=== PATIENT | female | born 1935 | race Caucasian/White ===

== ENCOUNTER 2019-07-30 07:50 | Inpatient (IN) | payer OTHER ==
[~2019-07-30] VITALS: Ht 160 cm; Wt 98.3 kg
[2019-07-30] VITALS (19 sets, daily range): BP systolic 86–139; BP diastolic 40–94
--- NOTE | ~2019-07-30 | D ---
[facility] [place] [address] DISCHARGE SUMMARY Name: ANGELICA LEE Room #: 242-P [facility] IN .R.#: [id number] Admission: 07/30/19 Attend Phys: Chu Palacios MD Discharge: 08/04/19 Date of : 37 Report #: [id number] THIS REPORT FOR: //name// CC: DEVAN physician/PCP NO PCP Chu Palacios DATE OF SERVICE: 08/04/2019 SUMMARY OF HISTORY AND PHYSICAL: Over the summer the patient had "seemed to have given up," according to multiple family members after she had been informed by her police magistrate that surgical repair of either her ascending/arch/descending aortic aneurysm or her abdominal aortic aneurysm would be prohibitively risky in general, but especially given her severe oxygen dependent COPD, and that she was not a surgical candidate. Also, according to multiple family members, she had become less and less able to tolerate exertion and was not leaving her house. She developed a diarrheal illness several days prior to admission and had fecal incontinence. She had taken to staying on the couch almost all the time and was not able to walk any farther then to the bathroom and back with assistance. She had her to assist her. Immediately prior to coming to the hospital, he was unable to get her off of the couch for longer than 4 hours. He called his son to come over and help and together the two of them were unable to get her up from the couch. They eventually called the paramedics who brought her to the hospital. In the Emergency Room, she complained of back pain and was evaluated further. Ultimately, her back pain was felt to be a worsening of her known osteoporosis and compression fractures and chronic back pain. It was felt that her back pain was not from either the thoracic or the aortic aneurysm. She also reported difficulty breathing to the Emergency Room staff. She was admitted for assistance with her back pain and breathing problems. SUMMARY OF HOSPITAL COURSE: Soon after arriving on the floor, she became quite somnolent. She was found to have CO2 retention narcosis. She was seen in urgent Pulmonary Medicine consultation and intubated and placed on a ventilator in the intensive care unit. She slowly improved and steps were taken towards weaning. However, in the hand clerical verifier hours of 08/04/2019, she developed a complex change on her EKG rhythm strips. She shifted from a normal sinus rhythm to an idioventricular rhythm with a change in her access and dramatic widening of her QRS complex. She was found to have progressively lower blood pressure and a code blue was called. She was found to have pulseless electrical activity and [facility] [address] [place] [address] DISCHARGE SUMMARY Name: ANGELICA LEE Room #: 242-P [facility]#: [id number] Admission: 07/30/19 Attend Phys: Chu Palacios MD Discharge: 08/04/19 Date of : 37 Report #: [id number] resuscitation efforts were carried out with the standard protocol. The resuscitation efforts were not successful, and she was pronounced by the Emergency Room physician who responded to the code. CAUSE OF : 1. Cardiac arrest. 2. Acute myocardial infarction with change in EKG complexes. 3. Known coronary artery disease. 4. Known aneurysmal dilatation of the entire thoracic aorta. 5. Rezre-xc-rkoqujs respiratory failure. 6. Severe oxygen-dependent chronic obstructive pulmonary disease. 7. Other medical problems as listed in the history and physical. By: 1857 2334 Chu Palacios MD /nt
[~2019-07-30 07:50] MED LIST: APAP500 PO; BYSTOLIC 5 MG5 M1 PO; COL-RITE100 MG PO; FUROSEMIDE 40 M40 M1 PO; HYDROCODONE-AP1 EAC6 PO; KLOR-CON 1010 MEQ PO; SENOKOT-S1 TA1 PO
[2019-07-30] MEDS ORDERED: DIAZEPAM 10 MG10 M2 PO (08:48)
[2019-07-30 08:51] LABS: URINE BILIRUBIN NEGATIVE (Negative); URINE BLOOD NEGATIVE (Negative); URINE CLARITY CLEAR; URINE COLOR YELLOW; URINE GLUCOSE-RANDOM* NEGATIVE (Negative); URINE KETONES NEGATIVE (Negative); URINE LEUKOCYTES 1+ (Negative); URINE NITRITE NEGATIVE (Negative); URINE PROTEIN (DIPSTICK) NEGATIVE (Negative); URINE UROBILINOGEN 0.2 E.U./dl (0.2-1.0)
[2019-07-30 09:08] LABS: CASTS None Seen /LPF (None Seen); MUCUS 0-3 Light strn/LPF (None Seen); SQUAMOUS 4-10 Moderate /LPF (0-3); TRANSITIONAL EPITHEL CELL 0-3 Few /LPF (None Seen)
[2019-07-30 09:09] LABS: RENAL EPITHELIAL CELLS 0-3 Few /LPF (None Seen); WBC CLUMPS Moderate (None Seen)
[2019-07-30 09:10] LABS: BACTERIA 1-9 Few /HPF (None Seen); CRYSTALS None Seen /LPF (None Seen); URINE RBC 0-2 Rare /HPF (0-2)
[2019-07-30 09:19] LABS: ABSOLUTE NEUTROPHILS 3.2 thou/uL (1.4-8.2); BASOPHILS 0.5 % (0.0-2.0); EOSINOPHILS 0.5 % (0.0-3.0); HEMATOCRIT 39.3 % (37.0-47.0); HEMOGLOBIN 12.1 gm/dL (12.0-15.0); LYMPHOCYTES 15.1 % (24.0-44.0); MCHC 30.9 g/dL (28.0-37.0); MCV 93.9 fL (80.0-100.0); MONOCYTES 9.7 % (1.0-8.0); PLATELET COUNT 155 thou/uL (150-400); POLYS 74.2 % (36.0-66.0); RBC 4.19 mil/uL (4.20-5.00); RDW 16.6 % (10.5-14.5); WBC 4.3 thou/uL (4.0-11.0)
[2019-07-30 10:39] LABS: ALBUMIN 3.6 g/dL (3.4-5.0); BUN 14 mg/dL (7-18); CALCIUM 9.1 mg/dL (8.5-10.1); CHLORIDE 100 mmol/L (98-107); CREATININE 0.4 mg/dL (0.6-1.0); GLUCOSE 90 mg/dL (74-106); POTASSIUM 4.6 mmol/L (3.5-5.1); SGOT 21 U/L (15-37); SGPT 18 U/L (30-65); SODIUM 143 mmol/L (136-145); TOTAL BILIRUBIN 0.6 mg/dL (<0.1-1.0); TOTAL PROTEIN 6.4 g/dL (6.4-8.2); TROPONIN-I <0.06 ng/mL (<0.06)
[2019-07-30 10:43] LABS: CO2 > 45 mmol/L (21-32)
--- NOTE | 2019-07-30 15:15 | NUR ---
Pt rec'd from ER poorly responsive, difficult to arouse. Pt's able to give very limited admission information. States he needs to go home. states pt has been dificult to wake up since morphine given earlier in day. ENGINEERING AIDE reported morphine 2mg given IV x 1 at 1107. Pt withdrawing to painful stimuli. Will open eyes briefly and then returns back to sleep immediaitely. VSS. Afebrile. See admission history. No family available to answer questions. Nurse practiioner for Dr. Duarte in to see patient. Dr. Duarte out of town until tomorrow. Concerns raised that pt has an ascending aortic aneurysm and no CV surgeon available at our facility. 1600 Dr. Palacios called for orders and given update. Dr. Palacios with call Julianne Mensah and Darnell to try and obtain clarity re: severity of aneurysm as pt is new to Dr. Palacios. Nursing gaming floor supervisor informed of possible need to transfer patient to facility with Cardiothoracic surgeon available for consult tonight. Dr. Palacios to call back and advise. 1730 Dr. Palacios called nursing unit, on way to see patient. No orders rec'd or on chart.
--- NOTE | 2019-07-30 15:42 | EKG ---
[address] [address] ELECTROCARDIOGRAM REPORT Name: DANIELANGELAANGELICA Room #: 359-P ADM IN ..#: [id number] Admission: 07/30/19 Attend Phys: Chu Palacios MD Discharge: Date of : 37 Report #: [id number] THIS REPORT FOR: //name// [facility] ED Test Date: 2019-07-30 Test Time: 08:04:34 Pat Name: ANGELICA LEE Department: Room: 359 Gender: F Drying Machine Receiver: DELILAH : 1935 Requested By: Ashleigh Brower Order Number: [id number] MD: Jhon Cason Measurements Intervals [place] Rate: 70 P: 74 AR: 167 QRS: 73 QRSD: 116 T: 84 QT: 398 QTc: 430 Interpretive Statements Sinus rhythm Nonspecific intraventricular conduction delay Motion artifact laterally no ischemic changes Electronically Signed On 07-30-2019 15:42:48 CDT by Jhon Cason [email or web address] <ELECTRONICALLY SIGNED> By: Jhon Cason MD 07/30/19 1542 803 3 Jhon aCson MD /OSWALDO
[2019-07-30 18:31] LABS: BE(vivo) 11.6 mmol/L (-2 to +3); HCO3 45.7 mmol/L (22.0-26.0); PCO2 136.1 mmHg (35.0-45.0); PO2 76.5 mmHg (80.0-100.0)
[2019-07-30 18:34] LABS: pH 7.144 (7.360-7.450)
--- NOTE | 2019-07-30 18:55 | NUR ---
Dr. Palacios at bedside. Critical ABG reported to Dr. Palacios at 1845. Orders rec'd at [address] patient on BiPAP and consult Dr. Branch. Order placed for transfer to ICU.
--- NOTE | 2019-07-30 19:02 | NUR ---
Report to oncoming RN.
--- NOTE | 2019-07-30 21:20 | NUR ---
VASCULAR ACCESS CONSULTED FOR PICC LINE BUT AFTER PT WAS INTUBATED DR HI REQUESTING CVAD INSTEAD. PT'S LABS,MEDS,HISTORY,ORDER AND CONSENT VERIFIED.RIJ WAS WIDELY PATENT WITH USG. 25CM 6FR TL POWER JACC INSERTED TO 7CM EXTERNAL. SITE BLEEDING GAUZE APPLIED. STAT CXR ORDERED.
--- NOTE | 2019-07-30 21:33 | NUR ---
CXR CONFIRMED PLACEMENT, CVAD RELEASED FOR IMMEDIATE USE PER PROTOCOL TO JABIER ARMAS
[2019-07-30 21:45] LABS: BE(vivo) 12.4 mmol/L (-2 to +3); HCO3 43.1 mmol/L (22.0-26.0); PO2 67.6 mmHg (80.0-100.0); sO2 89.4 % (92.0-98.0)
--- NOTE | 2019-07-30 23:44 | NUR ---
PATIENT TRANSFERRED FROM [facility], REPORT RECIEVED. PATIENT LETARGIC AND IN RESPIRATORY DISTRESS. DR. HI, DR. STEPHENS, AND DR. POOLE PRESENT AT THE BEDSIDE. PATIENT INTUBATED AT [address] HI, PLACED ON BLOOD PRESSURE SUPPORT. DE JESUS, CENTRAL LINE, AND OG INSERTED. AND FAMILY UPDATED ON PATIENT'S CONDITION. PATIENT CURRENTLY STABALIZED. NO SIGNS OF ACUTE DISTRESS NOTED AT THIS TIME. WILL CONTINUE TO MONITOR.
[2019-07-31] VITALS (50 sets, daily range): BP systolic 100–137; BP diastolic 41–115
[2019-07-31 05:20] LABS: ABSOLUTE NEUTROPHILS 5.7 thou/uL (1.4-8.2); BASOPHILS 0.1 % (0.0-2.0); HEMATOCRIT 35.9 % (37.0-47.0); HEMOGLOBIN 11.4 gm/dL (12.0-15.0); LYMPHOCYTES 4.2 % (24.0-44.0); MCH 29.1 pg (26.0-34.0); MCHC 31.8 g/dL (28.0-37.0); MCV 91.6 fL (80.0-100.0); MONOCYTES 2.9 % (1.0-8.0); PLATELET COUNT 129 thou/uL (150-400); POLYS 92.8 % (36.0-66.0); RBC 3.92 mil/uL (4.20-5.00); WBC 6.1 thou/uL (4.0-11.0)
[2019-07-31 05:29] LABS: ALBUMIN 3.3 g/dL (3.4-5.0); CALCIUM 8.4 mg/dL (8.5-10.1); CREATININE 0.5 mg/dL (0.6-1.0); POTASSIUM 3.8 mmol/L (3.5-5.1); TOTAL BILIRUBIN 0.9 mg/dL (<0.1-1.0); TOTAL PROTEIN 6.2 g/dL (6.4-8.2)
--- NOTE | 2019-07-31 07:45 | NUR ---
PATIENT ON LIGHT SEDATION, FOLLOWS COMMANDS WHEN PROPOFOL PAUSED. SINUS RHYTHM ON INTELLIGENCE CLERK. ON VENILATOR 40%FIO2. DE JESUS PATENT AND DRAINING. ON BLOOD PRESSURE SUPPORT. PATIENT REMAINED STABILIZED OVER NIGHT, SPOKE WITH SPOUSE AND UPDATED. NO SIGNS OF ACUTE DISTRESS NOTED AT THIS TIME. WILL CONTINUE TO MONITOR.
[2019-07-31 08:12] LABS: BE(vivo) 8.4 mmol/L (-2 to +3); HCO3 35.2 mmol/L (22.0-26.0); PCO2 58.7 mmHg (35.0-45.0); PO2 69.8 mmHg (80.0-100.0); pH 7.396 (7.360-7.450); sO2 93.6 % (92.0-98.0)
--- NOTE | 2019-07-31 11:46 | 2DMMODE ---
[facility] [address] [place] [address] 2 D/M-MODE ECHOCARDIOGRAM Name: ANGELICA LEE Room #: 242-P [facility] IN ..#: [id number] Admission: 07/30/19 Attend Phys: Chu Palacios, Discharge: Date of : 37 Report #: [id number] THIS REPORT FOR: //name// APPROVED REPORT Study performed: 07/31/2019 10:50:08 EXAM: Comprehensive 2D, Doppler, and color-flow Echocardiogram Patient Location: ICU Room #: 242 Status: routine BSA: 1.93 HR: 77 bpm BP: 108/41 mmHg Rhythm: NSR/Irregular Other Information Study Quality: Adequate Indications Aortic aneursym. COPD. 2D Dimensions RVDd: 49.72 mm IVSd: 10.64 (7-11mm) LVOT Diam: 22.35 (18-24mm) LVDd: 54.98 mm PWd: 9.72 (7-11mm) Ascending Ao: 69.78 (22-36mm) LVDs: 38.75 (25-40mm) Aortic Root: 37.76 mm Volumes Left Atrial Volume (Systole) Single Plane 4CH: 78.91 mL Single Plane 2CH: 78.85 mL LA ESV Index: 45.00 mL/m2 Aortic Valve AoV Peak Arnulfo.: 1.56 m/s AO Peak Gr.: 9.77 mmHg LVOT Max P.50 mmHg LVOT Max V: 1.06 m/s KARO Vmax: 2.66 cm2 Mitral Valve E/A Ratio: 0.7 MV Decel. Time: 312.62 ms MV E Max Arnulfo.: 0.83 m/s [facility] [address] [place] [address] 2 D/M-MODE ECHOCARDIOGRAM Name: ANGELICA LEE Veena Room #: 242-P [facility]#: [id number] Admission: 07/30/19 Attend Phys: Chu Palacios, Discharge: Date of : 37 Report #: [id number] MV A Arnulfo.: 1.11 m/s MV PHT: 90.66 ms IVRT: 93.43 ms Pulmonary Valve PV Peak Arnulfo.: 1.01 m/s PV Peak Gr.: 4.08 mmHg Pulmonary Vein P Vein S: 0.66 m/s P Vein A: 0.35 m/s P Vein D: 0.42 m/s P Vein A Dur.: 129.2 msec P Vein S/D Ratio: 1.57 Tricuspid Valve TR Peak Arnulfo.: 3.28 m/s RAP Estimate: 10.00 mmHg TR Peak Gr.: 43.08 mmHg PA Pressure: 53.00 mmHg Left Ventricle The left ventricle is normal size. There is normal LV segmental wall motion. There is normal left ventricular wall thickness. Left ventricular systolic function is normal. LVEF is 55%. Mild diastolic dysfunction is present (impaired relaxation pattern). Right Ventricle Right ventricle is dilated. The right ventricular systolic function is normal. Atria Left atrium is moderately dilated. Right atrium is moderate to severely dilated. Aortic Valve The aortic valve is normal in structure; mildly calcified. Mild aortic regurgitation. There is no aortic valvular stenosis. Mitral Valve The mitral valve is normal in structure. Mild mitral regurgitation. Tricuspid Valve The tricuspid valve is normal in structure. Mild to moderate tricuspid regurgitation. Estimated PAP is 55mmHg. Pulmonic Valve Pulmonic valve is not well visualized. Trace pulmonic regurgitation. [facility] [address] [place] [address] 2 D/M-MODE ECHOCARDIOGRAM Name: ANGELICA LEE Room #: 242-P [facility] IN ..#: [id number] Admission: 07/30/19 Attend Phys: Chu Palacios, Discharge: Date of : 37 Report #: [id number] Great Vessels Ascending aorta is severely dilated at 7.4cm. IVC is dilated and collapses <50% with inspiration. Pericardium There is no pericardial effusion. <Conclusion> The left ventricle is normal size. LVEF is 55%. Right ventricle is dilated. Left atrium is moderately dilated. Right atrium is moderate to severely dilated. The aortic valve is normal in structure; mildly calcified. Mild aortic regurgitation. The mitral valve is normal in structure. Mild mitral regurgitation. The tricuspid valve is normal in structure. Mild to moderate tricuspid regurgitation. Estimated PAP is 55mmHg. Pulmonic valve is not well visualized. Trace pulmonic regurgitation. Ascending aorta is severely dilated at 7.4cm. There is no pericardial effusion. <ELECTRONICALLY SIGNED> By: Michael Zamora MD 07/31/19 1146 1146 1146 Michael Zamora MD /INF
--- NOTE | 2019-07-31 11:53 | NUR ---
Patient admits to [facility] with back pain. She was having diarrhea at home and then with weakness was unable to get up from couch. She resides at home with spouse. She has home oxygen usu at 3 liters, and walker at home. Supportive family. Known hx of aneurysms, followed by Dr Mensah, deemed not sx candidate. patient currently in ICU intubated and sedated. Casemgt avail for dc planning.
[2019-07-31 14:08] LABS: BE(vivo) 8.4 mmol/L (-2 to +3); HCO3 34.8 mmol/L (22.0-26.0); PCO2 55.9 mmHg (35.0-45.0); PO2 78.9 mmHg (80.0-100.0); pH 7.412 (7.360-7.450); sO2 95.5 % (92.0-98.0)
[2019-08-01] VITALS (35 sets, daily range): BP systolic 97–261; BP diastolic 41–227
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
[2019-08-01 04:45] LABS: HEMATOCRIT 35.1 % (37.0-47.0); HEMOGLOBIN 11.4 gm/dL (12.0-15.0); MCH 29.1 pg (26.0-34.0); MCHC 32.4 g/dL (28.0-37.0); MCV 89.9 fL (80.0-100.0); RBC 3.9 mil/uL (4.20-5.00); RDW 16.1 % (10.5-14.5); WBC 8.7 thou/uL (4.0-11.0)
[2019-08-01 04:57] LABS: CALCIUM 8.5 mg/dL (8.5-10.1); CREATININE 0.5 mg/dL (0.6-1.0); PHOSPHORUS 2.5 mg/dL (2.5-4.9); POTASSIUM 3.6 mmol/L (3.5-5.1)
[2019-08-01 05:27] LABS: BE(vivo) 6.4 mmol/L (-2 to +3); HCO3 33.2 mmol/L (22.0-26.0); PCO2 57.6 mmHg (35.0-45.0); PO2 80.1 mmHg (80.0-100.0); pH 7.378 (7.360-7.450); sO2 95.4 % (92.0-98.0)
--- NOTE | 2019-08-01 06:17 | NUR ---
Pt remains intubated, sedated and restrained/PROM is provided. She does not follow any commands, withdraws to painful stimuli, pupils are sluggish but reactive. She has had a low grade temp, otherwise, BP has been stable, HR in the 70's. No change to the vent settings, AM ABG's are available, lungs are clear/diminished, minimal sputum with suctioning. OGT is intact, draining green gastric fluids that are getting commercial construction superintendent in color. ABD is soft, + bowel sounds, no BM this shift, she is NPO at this time. Mcdaniel catheter is patent, draining light yellow/green urine to DD, 1250 ml's voided. Her skin is intact, she has been repositioned Q2H. The bed is in the low/locked position, call light is within reach and siderails are up x 4. Will continue to monitor
--- NOTE | 2019-08-01 16:26 | NUR ---
PT IS STABLE ONT HE VENT. FAMILY AT BEDSIDE FOR SUPPORT. SEDATION VACATION DONE TODAY. PT DOES NOT SQUEZZE HANDS BUT DOES BLINK APROPRIATELY WHEN ASKED UPON COMMMAND. SINUS TACHY ON THE FOOD TECHNICIAN . SUCTION SMALL AMOUND OF CLEAR FLUID NOTED FROM ET TUBE. ABDOMEN IS ROUND AND SOFT. BOWEL SOUNDS ACTIVE X4. STARTED ON TUBE FEEDING TOLERATED WELL TODAY. DE JESUS TO DD WITH YELLOW URINE PRESENT. GENERALIZED EDEMA NOTED IN APPEARANCE. SCDS ON BILATERAL. WILL CONTINUE TO ASSESSS AND MONITOR PER NURSING
[2019-08-02] VITALS (25 sets, daily range): BP systolic 105–161; BP diastolic 45–75
[2019-08-02 05:37] LABS: CALCIUM 8.6 mg/dL (8.5-10.1); CREATININE 0.5 mg/dL (0.6-1.0); POTASSIUM 4.1 mmol/L (3.5-5.1)
--- NOTE | 2019-08-02 10:30 | NUR ---
Jevity 1.5 does not meet pts critical care nutrition demands. Recommend change formula to Vital HP goal of 30ml/hr while pt on propofol.
--- NOTE | 2019-08-02 11:40 | NUR ---
DR. HI HERE. SPOKE WITH YOUNGEST DAUGHTER EXTENSIVELY ABOUT CPAP TRIAL. ALL QUESTIONS ANSWERED.
--- NOTE | 2019-08-02 13:30 | NUR ---
DIPRIVAN DOWN TO 20 MCG, CPAP TRIAL IN PROGRESS.
--- NOTE | 2019-08-02 13:43 | NUR ---
CHRISTAL TURNED OFF PT NOT RESPONDING YET. DOING FINE ON CPAP, RESP EVEN AND UNLABORED.
[2019-08-02 14:29] LABS: BE(vivo) 7.6 mmol/L (-2 to +3); HCO3 35.6 mmol/L (22.0-26.0); PCO2 66.7 mmHg (35.0-45.0); PO2 74.6 mmHg (80.0-100.0); pH 7.345 (7.360-7.450); sO2 93.8 % (92.0-98.0)
--- NOTE | 2019-08-02 14:59 | NUR ---
PT FAILED CPAP NIF -10. PT REMAINED CALM OFF SEDATION AND WAS FOLLOWING COMMANDS. DR. HI CALLED. ORDERS GIVEN. PT PLACED BACK ON VENT.
--- NOTE | 2019-08-02 15:00 | NUR ---
PT FAMILY, SON AND INFORMED PT FAILED CPAP TRIAL. BOTH FAMILY MEMBERS SEAMED DEVASTED. EMOTIONAL SUPPORT GIVEN. EXPLAINED THAT THIS IS GOING TO BE A SLOW PROCESS.
--- NOTE | 2019-08-02 16:07 | NUR ---
Tube feeding changed to vital high protien with goal of 45cc/hr per conference organizer reccommendation.
--- NOTE | 2019-08-02 19:06 | NUR ---
PT NOT MOVING TOWARDS RESP GOALS. FAILED CPAP TODAY. WILL TRY AGAIN IN AM.
[2019-08-03] VITALS (23 sets, daily range): BP systolic 99–141; BP diastolic 50–79
[2019-08-03 05:41] LABS: CALCIUM 8.6 mg/dL (8.5-10.1); CREATININE 0.4 mg/dL (0.6-1.0); POTASSIUM 4.7 mmol/L (3.5-5.1)
[2019-08-03 06:29] LABS: HEMATOCRIT 35.9 % (37.0-47.0); HEMOGLOBIN 11.5 gm/dL (12.0-15.0); MCH 28.9 pg (26.0-34.0); MCHC 32.1 g/dL (28.0-37.0); MCV 90.3 fL (80.0-100.0); RBC 3.97 mil/uL (4.20-5.00); RDW 16.3 % (10.5-14.5); WBC 9.2 thou/uL (4.0-11.0)
[2019-08-03 06:32] LABS: CALCIUM 8.6 mg/dL (8.5-10.1); CREATININE 0.5 mg/dL (0.6-1.0); POTASSIUM 4.7 mmol/L (3.5-5.1)
--- NOTE | 2019-08-03 11:51 | HC ---
[facility] [place] [address] CONSULTATION Name: ANGELICA LEE Room #: 242-P ADM IN ..#: [id number] Admission: 07/30/19 Attend Phys: Chu Palacios MD Discharge: Date of : 37 Report #: [id number] THIS REPORT FOR: //name// CC: DEVAN physician/PCP NO PCP Chu Palacios DATE OF SERVICE: 07/31/2019 HISTORY OF PRESENT ILLNESS: We were asked to see the patient. The patient is an 84-year-old with a known abdominal and thoracic aortic aneurysm. At the time of the consult, the patient was seen in the Intensive Care Unit on a ventilator and most of the information I have is got from the medical record. The patient appears to have been admitted on 07/30/2019 with diarrhea and shortness of breath. The patient has known chronic obstructive pulmonary disease and typically wears 2 liters of oxygen as an outpatient. MEDICATIONS AT HOME: Includes acetaminophen, docusate, nebivolol, potassium, Lasix and diazepam. ALLERGIES: None known. SOCIAL HISTORY: Past history of cigarette use. FAMILY HISTORY: Does not appear to be contributory. REVIEW OF SYSTEMS: The patient is intubated and review of systems from my point of view was unobtainable. PHYSICAL EXAMINATION: GENERAL: The patient is lying in bed, intubated and ventilated. VITAL SIGNS: Blood pressure 117/49, heart rate 82, respiratory rate 20, O2 sat 95% on the ventilator settings, FiO2 40%. HEENT: I see no scleral icterus. Pupils are round and equal and reactive. NECK: No mass, no bruit. CHEST: Clear to auscultation anteriorly. HEART: Rhythm regular, no murmurs. ABDOMEN: Soft, no mass. EXTREMITIES: No clubbing, cyanosis or edema. ASSESSMENT AND PLAN: I reviewed the CT scan that shows a 5.6 cm infrarenal abdominal aortic aneurysm. There is no evidence of leak, mural thrombus is reported and repeated in several notes, but this is of no clinical significance. The thoracic aneurysm is not visualized on any of the current studies, but is said to be 6 cm. In addition, the patient was said in the past to have been [facility] [address] [place] [address] CONSULTATION Name: ANGELICA LEE Room #: 242-P [facility] IN [facility].#: [id number] Admission: 07/30/19 Attend Phys: Chu Palacios MD Discharge: Date of : 37 Report #: [id number] "too sick" for surgical treatment of these that clearly is the case at this point as this abdominal aneurysm is an acute discovery of a chronic problem. We are available if the clinical situation changes, but I suspect that the respiratory failure and gastrointestinal symptoms that the patient have no relation to the abdominal aneurysm. It is a privilege to participate in this patient's care. Thank you for the consult. <ELECTRONICALLY SIGNED> By: Jeremiah Duarte MD 08/03/19 1151 0943 0123 Jeremiah Duarte MD /kira
--- NOTE | 2019-08-03 13:55 | NUR ---
ASSUMED CARE OF PT AT APPROX 0700. PT IS SEDATED, ARROUSABLE EVEN WITH SEDATION. FOLLOWS SIMPLE COMMANDS ON SEDATION VACATION. ASSESSMENT CHARTED. PT WAS TRIALED ON CPAP, AND AT APPROX 40 MINUTES PT BEGAN TACHYPNIC, LABORED IN BREATHING AND 02 SAT STARTED TO SLOWY DROP, AFTER REACHING 89 THIS NURSE NOTIFIED RT OF PT STATUS AND PT WAS SWITCHED BACK TO VENTILATOR SETTING. PT HAS BEEN ABLE TO MAINTAIN 02 SAT >90 ON VENTILATOR SETTINGS. FAMILY HAS BEEN UPDATED AND EDUCATED ON POC BY THIS NURSE AND ALSO BY DR HI. WILL CONTINUE TO MONITOR.
[2019-08-04] VITALS: BP 135/84
[2019-08-04 01:00] VITALS: BP 149/67
[2019-08-04 02:01] VITALS: BP 164/96
[2019-08-04 02:04] VITALS: BP 165/75
--- NOTE | 2019-08-04 05:42 | NUR ---
PATIENT WAS INTUBATED THE . ET 24-23 AT THE TEETH. PATIENT WAS ON VENT AC 14, TV 500, PEEP 5, FIO2 50%. LUNGS COURSE. PATIENT WAS NSR ON TELE. PATIENT WAS ON TUBE FEED. PATIENT WAS NOT TOLERATING TUBE FEED. PATIENT HAD RESIDUALS AND TUBE FEED DECREASED AT 2100 AND 0000. FINAL RATE WAS 20ML/HR. ONE H2O FLUSH OF 100. PATIENT LBM WAS THE 8TH. BOWELS HYPOACTIVE. PATIENT HAD GOOD URINE OUTPUT. PATIENT WAS ON PROPOFOL AT 25MCG/KG/HR. PATIENT WAS AROUSABLE. PUPILS REACTIVE. PATIENT COMPLAINT OF PAIN AT 0205. NURSE GOT ASSISTANCE TO REPOSITION PATIENT PER COMFORT. STAFF TURNED PATIENT ON HER LEFT SIDE. RHYTHM CHANGED. WE TURNED THE PATIENT BACK TO HER BACK AND CHECKED RESPONSIVNESS. PATIENT WAS WITH DRAWLING FROM PAIN AT 0215. PATIENTS WAS NOT AROUSABLE. PUPILS NOT REACTIVE. PATIENT THEN BECAME UNRESPONSIVE TO PAIN OR ANY STIMULI.PATIENT HAD A FAINT PULSE THEN NO PULSE AT 0230. CODE BLUE WAS CALLED AT 0230. PATIENT HAD PEA. TIME OF CALLED AT 0255. FAMILY AND PROVIDER AWARE.
--- NOTE | 2019-08-08 19:00 | H ---
[facility] [place] [address] HISTORY AND PHYSICAL Name: ANGELICA LEE Room #: 242-P [facility] IN M.R.#: [id number] Admission: 07/30/19 Attend Phys: Chu Palacios MD Discharge: 08/04/19 Date of : 39 Report #: [id number] THIS REPORT FOR: //name// CC: DEVAN physician/PCP NO PCP Chu Palacios DATE OF SERVICE: 07/30/2019 CHIEF COMPLAINT: Son and was unable to get her off of the couch for 4 hours at home. HISTORY OF PRESENT ILLNESS: Information is obtained from the medical record, Emergency Room physicians, and 3 daughters and a granddaughter. The patient herself was experiencing CO2 narcosis and unable to answer, other than with a simple nod of her head and at the time of my examination. The patient began to have diarrhea several days ago that was very difficult for her and family to clean up, but they were able to do so. Apparently, she covered herself with stool. She may have had more episodes overnight last night, but did get up to the bathroom this morning perhaps 2-3. She walked back to her couch and after that time was not strong enough to get up. Her and her son tried for 4 hours to be able to get her up off of the couch, and when at last they decided that she was so weak they called the paramedics. Information provided by the paramedics to the Emergency Room physician was that she was having diarrhea and trouble breathing. She reported having her normal amount of wheezing. She complained of back pain and diarrhea to the paramedics. She was given 2 albuterol breathing treatments while en route. In the Emergency Room, she reported having back pain from a previous fall, and then changed her history to having back pain that was similar to what she had from a previous fall, but she denied having a recent fall. She reported having more breathing problems than usual. PAST MEDICAL HISTORY: Significant for oxygen dependent COPD, wearing 2 liters nasal cannula chronically. PCO2 was elevated in 2016. She has an ascending aortic aneurysm and abdominal aortic aneurysm, both being followed by Dr. Nico Mensah, her electronic video games servicer. Dr. Mensah repeorts that he has told her for some time now that the surgery is very risky and her COPD is severe and that she is not a surgical candidate. She has hypertension, anxiety, arthritis and swelling in her legs. She had an urgent cholecystectomy on 12/08/2014. She had tubular adenoma, colon polyps removed, 4 of them removed on 01/26/[address] Burton and chemical gastritis on stomach on a gastric biopsy. 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 She has a long history of smoking, but stopped many years ago. Oxygen 2-3 liters chronically for several years. Paralyzed left hemidiaphragm by history. Sinus surgery, thyroidectomy, left breast abscess, hysterectomy for cervical cancer, D and C, throat biopsy at [facility] on 11/09/2005, osteoporosis with vertebroplasty 07/2006 and 09/29/2006. SOCIAL HISTORY: She lives at home with her . She does not drink nor smoke. She has not indicated to her family any specific wishes regarding resuscitation or short-term ventilation if needed. REVIEW OF SYSTEMS: Her family reports she "seems to have given up, ever since Dr. Mensah told her that she was not strong enough to have her aneurysms repaired." Several of her daughters agreed with this statement. However, they also felt that she was not ready to ask for a "DNR status" Several relatives reported that she denied to them that she had COPD. The rest of the review of systems is not obtainable at this time. PHYSICAL EXAMINATION: GENERAL: She is examined in her hospital bed. She has 3 liters of nasal oxygen. VITAL SIGNS: Her blood pressure is 98/49, respirations 16 and her pulse is 62 and a normal sinus rhythm. I am able to arouse her and get her to slightly smile and make eye contact briefly. She nods her head that she is not in any pain. Palpation over the lumbar spine does elicit a grimace and a grown and a painful response. HEENT: Her face when she was lying on the side of a pillow snoring. Her mouth was not able to be examined. NECK: Negative. CHEST: Her breath sounds were quite distant and diminished, but no abnormalities were heard. CARDIOVASCULAR: S1 and S2 were normal. She had a grimace with moving her right shoulder. ABDOMEN: Obese, soft and nontender. EXTREMITIES: There is moderate edema of the legs below the knees, and it was tender to testing for pitting edema. NEUROLOGIC: No focal neurological deficits were identified, but formal testing was not attempted. LABORATORY DATA: On 3 liters by nasal cannula, her oxygen saturations were 90%. [facility] [place] [address] HISTORY AND PHYSICAL Name: ANGELICA LEE Room #: 242-P [facility] IN .R.#: [id number] Admission: 07/30/19 Attend Phys: Chu Palacios MD Discharge: 08/04/19 Date of : 39 Report #: [id number] Her pH was 7.14, pCO2 was 136, and her pO2 was 76 with a bicarbonate of 45 and a lactate of 0.70 increased to 0.75. Bicarbonate was over 45. Creatinine was 0.4, and her electrolytes were otherwise unremarkable. Her BUN was 14. Albumin was 3.6. Troponin was negative. NT-proBNP was 1167. WBCs were 4.3 thousand, hemoglobin was 12.1, segmented neutrophils were 74.2%. Urinalysis showed 1% leukocytes with moderate squamous epithelial cells, moderate white blood cell clumps and 25 wbc's per high powered field. CT scan of the abdomen and pelvis showed no acute changes, emphysematous changes of the lung bases with a 2 cm nonobstructive stone of the left renal pelvis, a small nonobstructing stone of the right kidney and a 4 mm stone in the bladder. A 5.6 x 4.6 infrarenal abdominal aortic aneurysm with mural thrombus is identified, beginning at the level of the renal arteries. Multiple vertebroplasty were noted. Mild loss of height of the superior endplate of L4 was also seen. CTA of the chest dated 05/24/2016 showed an ascending aortic aneurysm of 5.8 x 6.7 cm with an aneurysmal aortic arch that tapered in the descending aorta to 3.2 x 3.1 cm at that time. 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 ASSESSMENT: 1. The patient presented to the hospital because she was weak and unable to be moved from the couch by her son and . 2. Recent diarrhea with incontinence. 3. Chronic low back pain with vertebral compression fractures, possibly an acute compression fracture of the superior endplate of L4. 4. Oxygen dependent, CO2 retaining severe chronic obstructive pulmonary disease with progressively symptomatic activity limiting dyspnea. 5. 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 6. Large infrarenal abdominal aortic aneurysm. 7. Progressive decline in functional status over the last year. 8. Anxiety. 9. Depression. 10. Kidney stones. 11. Generalized weakness. 12. Acute respiratory failure with acute on chronic CO2 narcosis. CURRENT MEDICATIONS: Furosemide 40 mg daily, potassium chloride 10 mEq 2 tablets daily, Bystolic 5 mg daily, Tylenol Arthritis 2 tablets in the morning and the evening, diazepam 10 mg daily as needed, 30 tablets filled 06/29/[address] [address] HISTORY AND PHYSICAL Name: DANIELANGELAANGELICA Room #: 242-P DIS IN M.R.#: [id number] Admission: 07/30/19 Attend Phys: Chu Palacios MD Discharge: 08/04/19 Date of : 39 Report #: [id number] with 13 tablets remaining in her prescription bottle, Align probiotics. ALLERGIES: None known. PLAN: Three daughters and a granddaughter were present. The respiratory status mandates transfer to the Intensive Care Unit with the institution of BiPAP. If this is not successful, intubation is necessary to keep her living. They seem to understand that. They also understood that at this time, we do not have a cardiovascular surgeon should be either of the aneurysms require urgent intervention. It was also carefully explained to them that her pulmonary status actually precluded any active intervention on her aneurysms. Also, there is no current indication that the aneurysms were actively leaking. It was explained in detail that if they were to be actively leaking, even in the best of institutions that were completely equipped, her chances of survival would be quite limited. Pulmonary medicine consultation has been requested. Cardiology consultation and Cardiothoracic Surgery consultations will be requested as well. <ELECTRONICALLY SIGNED> By: Chu Palacios MD 08/08/19 [id number] Chu Palacios MD /nt
== END 2019-08-04 02:55 | DRG 207 ==
LOC: ER 07:50 → ICU 14:30 → EROBS 14:30 → ICU 15:10 → 3W 15:12 → ICU 19:58
PROVIDERS: Internal Medicine Pulmonary Disease; Student in an Organized Health Care Education/Training Program; ADMIT Internal Medicine
PROC: 02HV33Z Insertion of Infusion Device into Superior Vena Cava, Percutaneous Approach (ICD-10-PCS; principal; 2019-07-30)
PROC: 5A1955Z Respiratory Ventilation, Greater than 96 Consecutive Hours (ICD-10-PCS; principal; 2019-07-30)
PROC: 0BH17EZ Insertion of Endotracheal Airway into Trachea, Via Natural or Artificial Opening (ICD-10-PCS; principal; 2019-07-30)
DX: J96.22 Acute and chronic respiratory failure with hypercapnia (principal); E87.3 Alkalosis; N39.0 Urinary tract infection, site not specified; J96.21 Acute and chronic respiratory failure with hypoxia; J43.9 Emphysema, unspecified; E83.42 Hypomagnesemia; I71.4 Abdominal aortic aneurysm, without rupture; I10 Essential (primary) hypertension; R19.7 Diarrhea, unspecified; I95.9 Hypotension, unspecified; I73.9 Peripheral vascular disease, unspecified; M81.0 Age-related osteoporosis without current pathological fracture; F41.9 Anxiety disorder, unspecified; F32.9 Major depressive disorder, single episode, unspecified; N20.0 Calculus of kidney; Z90.710 Acquired absence of both cervix and uterus; Z85.41 Personal history of malignant neoplasm of cervix uteri; Z99.81 Dependence on supplemental oxygen; I46.9 Cardiac arrest, cause unspecified
CPT/HCPCS: 10078